=== PATIENT | female | born 1950 | race Caucasian/White ===

== ENCOUNTER 2021-05-27 15:12 | Inpatient (IN) ==
[2021-05-27 16:21] LABS: ABS Lymphocytes 0.5 10^3/ul (1.0-4.8); ABS Monocytes 0.3 10^3/ul (0-0.8); ABS Neutrophils 2.2 10^3/ul (1.5-7.7); Eosinophil % 0.6 %; Hematocrit 41 % (35-47); Hemoglobin 13.9 g/dL (12.0-16.0); Lymphocyte % 15.7 %; Mean Corpuscular HGB Conc 34 g/dL (31-36); Mean Corpuscular Hemoglobin 34 pg (27-31); Mean Corpuscular Volume 101 fL (80-97); Mean Platelet Volume 7.4 fL (7.4-10.4); Platelet Count 316 10^3/uL (150-450); Red Blood Count 4.06 10^6 /uL (3.70-4.87); Red Cell Distribution Width 14 % (10-15)
[2021-05-27 17:17] LABS: Albumin/Globulin Ratio 1.5 (1-3); Calcium 9.1 mg/dL (8.6-10.3); Globulin 2.6 g/dL (2-4); Potassium 4.4 mmol/L (3.5-5.0); Total Bilirubin 0.4 mg/dL (0.2-1.0); Total Protein 6.6 g/dL (6.4-8.9); eGFR CKD-EPI 93.5 (>60)
[2021-05-27] MEDS ORDERED: Iohexol 350 (CONTRAST) 500 ML MDV IV ONE (18:57)
[2021-05-27] MEDS ORDERED: Remdesivir 100 mg Vial 200 MG in NS 0.9% 250 ml 210 ML IV ONE (22:18)
[2021-05-27] MEDS ORDERED: Albuterol HFA INHALER 8 gm MDI INH PRN (22:21)
[2021-05-28] MEDS: Enoxaparin 40 MG/0.4 ML SYR SUBCUT SCH ×2 (01:39→21:12)
[2021-05-28] MEDS: Morphine ORAL.SOLN 10 mg 2 mg/ml UDC 5 ml (10 mg) PO PRN ×2 (03:10→22:44)
[2021-05-28 03:18] LABS: Urine Appearance Clear; Urine Bilirubin Negative (Negative); Urine Blood Negative (Negative); Urine Color Straw; Urine Glucose Negative (Negative); Urine Ketones Trace (Negative); Urine Nitrite Negative (Negative); Urine Protein Negative (Negative); Urine Specific Gravity 1.015 (1.002-1.030); Urine Urobilinogen Negative (Negative)
[2021-05-28 06:37] LABS: ABS Lymphocytes 0.3 10^3/ul (1.0-4.8); ABS Monocytes 0.1 10^3/ul (0-0.8); ABS Neutrophils 2.9 10^3/ul (1.5-7.7); Eosinophil % 0.3 %; Hematocrit 43 % (35-47); Hemoglobin 14.8 g/dL (12.0-16.0); Lymphocyte % 8.1 %; Mean Corpuscular HGB Conc 34 g/dL (31-36); Mean Corpuscular Hemoglobin 35 pg (27-31); Mean Corpuscular Volume 102 fL (80-97); Mean Platelet Volume 7.4 fL (7.4-10.4); Nucleated Red Blood Cells % 0.1; Platelet Count 317 10^3/uL (150-450); Red Blood Count 4.27 10^6 /uL (3.70-4.87); Red Cell Distribution Width 14 % (10-15); White Blood Count 3.4 10^3/uL (3.5-10.8)
[2021-05-28 07:04] LABS: Albumin/Globulin Ratio 1.4 (1-3); Calcium 8.9 mg/dL (8.6-10.3); Globulin 2.8 g/dL (2-4); Potassium 4.7 mmol/L (3.5-5.0); Total Bilirubin 0.4 mg/dL (0.2-1.0); Total Protein 6.8 g/dL (6.4-8.9); eGFR CKD-EPI 97.3 (>60)
[2021-05-28] MEDS: Mometasone/Formoter 200/5 MDI INH SCH ×3 (08:10→20:22)
[2021-05-28] MEDS: oxyCODONE SR 15 mg TAB PO SCH ×2 (09:51→21:11)
[2021-05-28] MEDS: Vitamin THERAPEUTIC TAB PO SCH (09:52)
[2021-05-28] MEDS: NALOXEGOL 12.5 MG PO SCH (09:53)
[2021-05-28] MEDS ORDERED: Albuterol HFA INHALER 8 gm MDI INH PRN (19:59)
[2021-05-28] MEDS: SPIRIVA Respimat (tiotropium) 2.5 mcg/inh Inhaler INH SCH (21:01)
[2021-05-28] MEDS: Remdesivir 100 mg Vial 100 MG in NS 0.9% 250 ml 230 ML IV SCH (21:12)
[2021-05-29] MEDS: SPIRIVA Respimat (tiotropium) 2.5 mcg/inh Inhaler INH SCH (08:15)
[2021-05-29] MEDS: Mometasone/Formoter 200/5 MDI INH SCH ×2 (08:15→20:16)
[2021-05-29] MEDS: oxyCODONE SR 15 mg TAB PO SCH ×2 (09:02→22:27)
[2021-05-29] MEDS: Vitamin THERAPEUTIC TAB PO SCH (09:02)
[2021-05-29] MEDS: NALOXEGOL 12.5 MG PO SCH (10:57)
[2021-05-29] MEDS: Morphine ORAL.SOLN 10 mg 2 mg/ml UDC 5 ml (10 mg) PO PRN (12:42)
[2021-05-29] MEDS ORDERED: Magnesium CITRATE LIQ 300 ML BTL PO ONE (15:05)
[2021-05-29] MEDS ORDERED: Albuterol HFA INHALER 8 gm MDI INH SCH ×2 (18:00→18:30)
[2021-05-29] MEDS ORDERED: Albuterol HFA INHALER 8 gm MDI INH PRN (20:30)
[2021-05-29] MEDS: Enoxaparin 40 MG/0.4 ML SYR SUBCUT SCH (22:28)
[2021-05-29] MEDS: Remdesivir 100 mg Vial 100 MG in NS 0.9% 250 ml 230 ML IV SCH (22:30)
[2021-05-30 05:01] LABS: ABS Lymphocytes 0.7 10^3/ul (1.0-4.8); ABS Monocytes 0.8 10^3/ul (0-0.8); ABS Neutrophils 8.7 10^3/ul (1.5-7.7); Hematocrit 38 % (35-47); Hemoglobin 13.1 g/dL (12.0-16.0); Lymphocyte % 6.4 %; Mean Corpuscular HGB Conc 35 g/dL (31-36); Mean Corpuscular Hemoglobin 35 pg (27-31); Mean Corpuscular Volume 101 fL (80-97); Mean Platelet Volume 7.8 fL (7.4-10.4); Platelet Count 292 10^3/uL (150-450); Red Blood Count 3.77 10^6 /uL (3.70-4.87); Red Cell Distribution Width 14 % (10-15); White Blood Count 10.2 10^3/uL (3.5-10.8)
[2021-05-30 05:41] LABS: Albumin 3.3 g/dL (3.2-5.2); Albumin/Globulin Ratio 1.5 (1-3); Calcium 8.2 mg/dL (8.6-10.3); Globulin 2.2 g/dL (2-4); Potassium 4.2 mmol/L (3.5-5.0); Total Bilirubin 0.3 mg/dL (0.2-1.0); Total Protein 5.5 g/dL (6.4-8.9); eGFR CKD-EPI 96.1 (>60)
[2021-05-30] MEDS: SPIRIVA Respimat (tiotropium) 2.5 mcg/inh Inhaler INH SCH (07:03)
[2021-05-30] MEDS: Mometasone/Formoter 200/5 MDI INH SCH (07:03)
[2021-05-30] MEDS: Vitamin THERAPEUTIC TAB PO SCH (09:23)
[2021-05-30] MEDS: oxyCODONE SR 15 mg TAB PO SCH (09:25)
[2021-05-30 11:56] VITALS: BP 143/74
== END 2021-05-30 14:08 | disposition home or self-care (01) | DRG 871 ==
LOC: ED 15:12 → MED 20:18 → SUATTDRO 20:18 → MED 23:27
PROVIDERS: ADMIT Internal Medicine; ATTEND Internal Medicine

== ENCOUNTER 2022-10-08 20:19 | Inpatient (IN) ==
[2022-10-08] MEDS ORDERED: NS 0.9% 1000 ml BAG 1,000 ML IV ONE (20:21)
[2022-10-08 21:07] LABS: ABS Basophils 0.1 10^3/uL (0.0-0.1); ABS Eosinophils 0.3 10^3/uL (0.0-0.5); ABS Neutrophils 10.5 10^3/uL (1.5-7.6); ABS Nucleated RBC 0.01 10^3/ul; Eosinophil % 2.4 %; Hematocrit 31.3 % (35-45); Hemoglobin 10.8 g/dL (11.5-14.3); Lymphocyte % 7.6 %; Mean Corpuscular Hemoglobin 34.4 pg (27-33); Mean Corpuscular Hgb Conc 34.6 g/dL (31-36); Mean Corpuscular Volume 99.2 fL (80-97); Mean Platelet Volume 7.4 fL (7.5-11.2); Nucleated Red Blood Cells % 0.1 /100 WBC (0.0-0.4); Platelet Count 311 10^3/uL (150-450); Red Blood Count 3.15 10^6/uL (3.63-4.92); Red Cell Distribution Width 13.1 % (12-17); White Blood Count 12.9 10^3/uL (3.8-11.8)
[2022-10-08 21:21] LABS: Activated Partial Thrombo Time 28.2 seconds (26.0-38.0); INR 1.04 (0.88-1.18)
[2022-10-08 21:25] LABS: Albumin 4.1 g/dL (3.2-5.2); Albumin/Globulin Ratio 1.8 (1-3); Calcium 9.2 mg/dL (8.6-10.3); Creatinine, Serum 0.69 mg/dL (0.51-0.95); Globulin 2.3 g/dL (2-4); Potassium 4.8 mmol/L (3.5-5.0); Total Bilirubin 0.3 mg/dL (0.2-1.0); Total Protein 6.4 g/dL (6.4-8.9); eGFR CKD-EPI 91.6 (>60)
[2022-10-08] MEDS ORDERED: Morphine 4 MG/ML VIAL (1 ml) IV ONE (21:34)
[2022-10-08] MEDS ORDERED: Ondansetron 4 mg VIAL 2 MG/ML 2 ml VIAL IV ONE (21:34)
[2022-10-08] MEDS ORDERED: HYDROmorphone 1 MG/1 ML SYRINGE IV SLOW PU ONE (22:40)
[2022-10-09] MEDS: Acetaminophen IV 1 GM/100ML 1,000 MG/100 ML BAG IV PRN ×2 (00:05→08:35)
[2022-10-09] MEDS ORDERED: Albuterol HFA INHALER 8 gm MDI INH PRN (00:24)
[2022-10-09] MEDS ORDERED: Albuterol/Ipratropium NEB.SOL (2.5/0.5 MG) 3 ML NEB.SOLN INH PRN (00:24)
[2022-10-09 00:43] LABS: High Sensitivity Troponin 1 Hr 6 pg/mL (<15)
[2022-10-09] MEDS ORDERED: Ondansetron 4 mg VIAL 2 MG/ML 2 ml VIAL IV PRN ×2 (01:05→12:34)
[2022-10-09] MEDS: Lactated Ringers 1000 ml BAG 1,000 ML IV SCH ×2 (01:59→15:02)
[2022-10-09] MEDS ORDERED: Propofol 10 MG/ML 20 ML BTL ONE (08:06)
[2022-10-09] MEDS ORDERED: Midazolam 2 mg/2 ml VIAL 1 mg/ml 2 ml VIAL (2 mg) ONE (08:06)
[2022-10-09] MEDS ORDERED: fentaNYL 100 mcg/2 ml 50 MCG/ML VIAL ONE ×2 (08:06→13:34)
[2022-10-09] MEDS ORDERED: Lidocaine 2% PF 5 ML VIAL ONE (08:06)
[2022-10-09] MEDS ORDERED: Phenylephrine 40 mcg/mL 10mL (400mcg) SYRINGE ONE (08:06)
[2022-10-09] MEDS ORDERED: Ondansetron 4 mg VIAL 2 MG/ML 2 ml VIAL ONE (08:06)
[2022-10-09] MEDS ORDERED: Dexamethasone IV 4 MG/ML VIAL 1 ml VIAL ONE (08:06)
[2022-10-09 08:33] LABS: Calcium 8.5 mg/dL (8.6-10.3); Creatinine, Serum 0.71 mg/dL (0.51-0.95); eGFR CKD-EPI 89.7 (>60)
[2022-10-09] MEDS ORDERED: Levalbuterol 1.25MG/0.5ML NEB.SOL ONE ×3 (09:02→13:05)
[2022-10-09] MEDS ORDERED: Lidocaine 1% w EPI 1:100,000 MDV 20 ML VIAL ONE (09:21)
[2022-10-09] MEDS ORDERED: ceFAZolin 2 GM in NS PREMIX 2 GM/100 ML BAG IVPB ONE (09:48)
[2022-10-09] MEDS ORDERED: ceFAZolin 2 GM/50 ML BAG IV ONE (10:00)
[2022-10-09] MEDS ORDERED: Naloxone 0.4 mg VIAL 0.4 mg/ml 1 ml VIAL IV PRN (12:34)
[2022-10-09] MEDS ORDERED: fentaNYL 100 mcg/2 ml 50 MCG/ML VIAL IV PRN (12:34)
[2022-10-09] MEDS ORDERED: Levalbuterol 1.25MG/0.5ML NEB.SOL INH PRN (12:34)
[2022-10-09] MEDS: Calcium (OSCAL) 500 mg TAB PO SCH ×2 (16:40→20:20)
[2022-10-09] MEDS: PTO: Multivitamins/Mins AREDS2 (NF) CAP PO SCH ×2 (16:40→20:20)
[2022-10-09] MEDS: Multivitamins/Minerals TAB PO SCH (16:40)
[2022-10-09] MEDS: Sodium Chloride 2% OPTH.SOL 15 ML BTL BOTH EYES SCH ×3 (16:41→21:14)
[2022-10-09] MEDS: Albuterol/Ipratropium RESP(NF) MDI (Combivent Respimat) INH SCH (16:50)
[2022-10-09] MEDS ORDERED: Albuterol/Ipratropium NEB.SOL (2.5/0.5 MG) 3 ML NEB.SOLN INH SCH (19:00)
[2022-10-09] MEDS: ceFAZolin 2 GM PREMIX 2 GM/50 ML BAG IV SCH (20:19)
[2022-10-10] MEDS: Lactated Ringers 1000 ml BAG 1,000 ML IV SCH ×2 (00:23→11:53)
[2022-10-10] MEDS: ceFAZolin 2 GM PREMIX 2 GM/50 ML BAG IV SCH ×2 (04:58→12:16)
[2022-10-10] MEDS ORDERED: Albuterol/Ipratropium NEB.SOL (2.5/0.5 MG) 3 ML NEB.SOLN INH SCH (07:00)
[2022-10-10 08:13] LABS: ABS Lymphocytes 0.6 10^3/uL (1.0-4.8); ABS Neutrophils 10.2 10^3/uL (1.5-7.6); Eosinophil % 0.1 %; Hematocrit 20.2 % (35-45); Lymphocyte % 4.8 %; Mean Corpuscular Hemoglobin 34.7 pg (27-33); Mean Corpuscular Hgb Conc 34.7 g/dL (31-36); Mean Corpuscular Volume 100.1 fL (80-97); Mean Platelet Volume 8.2 fL (7.5-11.2); Platelet Count 222 10^3/uL (150-450); Red Blood Count 2.01 10^6/uL (3.63-4.92); Red Cell Distribution Width 13.5 % (12-17); White Blood Count 11.8 10^3/uL (3.8-11.8)
[2022-10-10 08:27] LABS: Calcium 8.6 mg/dL (8.6-10.3); Creatinine, Serum 0.8 mg/dL (0.51-0.95); eGFR CKD-EPI 77.8 (>60)
[2022-10-10] MEDS: Calcium (OSCAL) 500 mg TAB PO SCH ×2 (08:53→20:03)
[2022-10-10] MEDS: Multivitamins/Minerals TAB PO SCH (08:53)
[2022-10-10] MEDS: Sodium Chloride 2% OPTH.SOL 15 ML BTL BOTH EYES SCH ×4 (08:56→20:07)
[2022-10-10] MEDS: PTO: Multivitamins/Mins AREDS2 (NF) CAP PO SCH ×2 (08:56→20:08)
[2022-10-10] MEDS ORDERED: Enoxaparin 40 MG/0.4 ML SYR SUBCUT SCH (09:00)
[2022-10-10] MEDS: Acetaminophen IV 1 GM/100ML 1,000 MG/100 ML BAG IV PRN (11:53)
[2022-10-10] MEDS: Albuterol/Ipratropium NEB.SOL (2.5/0.5 MG) 3 ML NEB.SOLN INH SCH (19:09)
[2022-10-11] MEDS: Lactated Ringers 1000 ml BAG 1,000 ML IV SCH (00:59)
[2022-10-11] MEDS: Acetaminophen IV 1 GM/100ML 1,000 MG/100 ML BAG IV PRN (05:43)
[2022-10-11 05:56] LABS: ABS Basophils 0.1 10^3/uL (0.0-0.1); ABS Eosinophils 0.1 10^3/uL (0.0-0.5); ABS Lymphocytes 0.8 10^3/uL (1.0-4.8); ABS Monocytes 0.9 10^3/uL (0.0-0.9); Eosinophil % 0.9 %; Hematocrit 24.5 % (35-45); Hemoglobin 8.6 g/dL (11.5-14.3); Lymphocyte % 7.3 %; Mean Corpuscular Hemoglobin 34.1 pg (27-33); Mean Corpuscular Hgb Conc 35.1 g/dL (31-36); Mean Corpuscular Volume 97.1 fL (80-97); Mean Platelet Volume 7.5 fL (7.5-11.2); Platelet Count 206 10^3/uL (150-450); Red Blood Count 2.52 10^6/uL (3.63-4.92); Red Cell Distribution Width 14.7 % (12-17); White Blood Count 10.9 10^3/uL (3.8-11.8)
[2022-10-11 06:10] LABS: Creatinine, Serum 0.49 mg/dL (0.51-0.95); Potassium 4.4 mmol/L (3.5-5.0); eGFR CKD-EPI 99.5 (>60)
[2022-10-11] MEDS: Albuterol/Ipratropium NEB.SOL (2.5/0.5 MG) 3 ML NEB.SOLN INH SCH ×2 (07:22→19:17)
[2022-10-11] MEDS: Sodium Chloride 2% OPTH.SOL 15 ML BTL BOTH EYES SCH ×4 (09:25→20:35)
[2022-10-11] MEDS: Multivitamins/Minerals TAB PO SCH (09:25)
[2022-10-11] MEDS: PTO: Multivitamins/Mins AREDS2 (NF) CAP PO SCH ×2 (09:25→20:43)
[2022-10-11] MEDS: Calcium (OSCAL) 500 mg TAB PO SCH ×2 (09:25→20:35)
[2022-10-11] MEDS: Albuterol HFA INHALER 8 gm MDI INH PRN ×2 (11:17→14:40)
[2022-10-11] MEDS: Senna TAB 8.6 mg TAB PO PRN (20:56)
[2022-10-12 07:00] LABS: ABS Eosinophils 0.3 10^3/uL (0.0-0.5); ABS Lymphocytes 0.8 10^3/uL (1.0-4.8); ABS Monocytes 0.8 10^3/uL (0.0-0.9); ABS Nucleated RBC 0.01 10^3/ul; Eosinophil % 3.3 %; Hemoglobin 7.6 g/dL (11.5-14.3); Mean Corpuscular Hemoglobin 33.7 pg (27-33); Mean Corpuscular Hgb Conc 34.7 g/dL (31-36); Mean Corpuscular Volume 97.2 fL (80-97); Mean Platelet Volume 8.3 fL (7.5-11.2); Nucleated Red Blood Cells % 0.1 /100 WBC (0.0-0.4); Platelet Count 207 10^3/uL (150-450); Red Blood Count 2.26 10^6/uL (3.63-4.92); Red Cell Distribution Width 14.4 % (12-17); White Blood Count 7.9 10^3/uL (3.8-11.8)
[2022-10-12] MEDS: Magnesium Hydroxide LIQ 30 ML UDC PO PRN ×2 (07:32→22:06)
[2022-10-12] MEDS: Calcium (OSCAL) 500 mg TAB PO SCH ×2 (07:32→22:05)
[2022-10-12] MEDS: Polyethylene Glycol 3350 17 GM PACKET PO PRN (07:32)
[2022-10-12] MEDS: Multivitamins/Minerals TAB PO SCH (07:32)
[2022-10-12] MEDS: Sodium Chloride 2% OPTH.SOL 15 ML BTL BOTH EYES SCH ×4 (07:33→22:05)
[2022-10-12] MEDS: PTO: Multivitamins/Mins AREDS2 (NF) CAP PO SCH ×2 (07:33→22:05)
[2022-10-12] MEDS: Albuterol/Ipratropium NEB.SOL (2.5/0.5 MG) 3 ML NEB.SOLN INH SCH ×2 (08:06→20:09)
[2022-10-12] MEDS: Lactated Ringers 1000 ml BAG 1,000 ML IV SCH (10:26)
[2022-10-12] MEDS: Albuterol HFA INHALER 8 gm MDI INH PRN (12:45)
[2022-10-12 14:17] LABS: Hematocrit 22.5 % (35-45); Hemoglobin 7.9 g/dL (11.5-14.3)
[2022-10-12] MEDS: Senna TAB 8.6 mg TAB PO PRN (22:06)
[2022-10-13] MEDS: Polyethylene Glycol 3350 17 GM PACKET PO PRN ×2 (06:14→22:06)
[2022-10-13] MEDS: Albuterol/Ipratropium NEB.SOL (2.5/0.5 MG) 3 ML NEB.SOLN INH SCH ×2 (08:31→19:45)
[2022-10-13] MEDS: Multivitamins/Minerals TAB PO SCH (09:03)
[2022-10-13] MEDS: PTO: Multivitamins/Mins AREDS2 (NF) CAP PO SCH ×2 (09:03→21:44)
[2022-10-13] MEDS: Magnesium Hydroxide LIQ 30 ML UDC PO PRN ×2 (09:03→22:07)
[2022-10-13] MEDS: Calcium (OSCAL) 500 mg TAB PO SCH ×2 (09:03→21:43)
[2022-10-13] MEDS: Sodium Chloride 2% OPTH.SOL 15 ML BTL BOTH EYES SCH ×4 (09:09→21:44)
[2022-10-13] MEDS: Heparin 5000 UNITS/ML 1 mL VIAL SUBCUT SCH (21:45)
[2022-10-13] MEDS: Senna TAB 8.6 mg TAB PO PRN (22:07)
[2022-10-14] MEDS: Albuterol/Ipratropium NEB.SOL (2.5/0.5 MG) 3 ML NEB.SOLN INH SCH ×2 (08:00→19:50)
[2022-10-14 08:50] LABS: Hematocrit 23.2 % (35-45); Hemoglobin 8.2 g/dL (11.5-14.3)
[2022-10-14] MEDS: Heparin 5000 UNITS/ML 1 mL VIAL SUBCUT SCH ×2 (09:02→20:21)
[2022-10-14] MEDS: Magnesium Hydroxide LIQ 30 ML UDC PO PRN (09:02)
[2022-10-14] MEDS: Calcium (OSCAL) 500 mg TAB PO SCH ×2 (09:03→20:20)
[2022-10-14] MEDS: Multivitamins/Minerals TAB PO SCH (09:05)
[2022-10-14] MEDS: PTO: Multivitamins/Mins AREDS2 (NF) CAP PO SCH ×2 (09:06→20:24)
[2022-10-14] MEDS: Sodium Chloride 2% OPTH.SOL 15 ML BTL BOTH EYES SCH ×4 (09:06→20:25)
[2022-10-14 09:10] LABS: Calcium 8.9 mg/dL (8.6-10.3); Creatinine, Serum 0.51 mg/dL (0.51-0.95); Potassium 4.3 mmol/L (3.5-5.0); eGFR CKD-EPI 98.5 (>60)
[2022-10-15] MEDS: Albuterol/Ipratropium NEB.SOL (2.5/0.5 MG) 3 ML NEB.SOLN INH SCH (07:03)
[2022-10-15] MEDS: PTO: Multivitamins/Mins AREDS2 (NF) CAP PO SCH (07:50)
[2022-10-15] MEDS: Heparin 5000 UNITS/ML 1 mL VIAL SUBCUT SCH (07:50)
[2022-10-15] MEDS: Calcium (OSCAL) 500 mg TAB PO SCH (07:50)
[2022-10-15] MEDS: Sodium Chloride 2% OPTH.SOL 15 ML BTL BOTH EYES SCH (07:50)
[2022-10-15] MEDS: Multivitamins/Minerals TAB PO SCH (07:50)
[2022-10-15 08:52] LABS: Rapid COVID-19 Molecular Undetected (Undetected)
[2022-10-15 09:59] VITALS: BP 154/74
== END 2022-10-15 10:30 | DRG 481 ==
LOC: ED 20:19 → SUATTDRO 22:52 → EDHOLD 22:52 → OR 10-09 09:51 → SSU 10-09 09:53 → SUATTDRO 10-09 14:41
PROVIDERS: ADMIT Internal Medicine; ATTEND Internal Medicine

== ENCOUNTER 2023-06-02 07:59 | Inpatient (IN) ==
[2023-06-02] MEDS: Albuterol/Ipratropium NEB.SOL (2.5/0.5 MG) 3 ML NEB.SOLN INH ONE (08:30)
[2023-06-02 08:40] LABS: ABS Basophils 0.1 10^3/uL (0.0-0.1); ABS Eosinophils 0.1 10^3/uL (0.0-0.5); ABS Lymphocytes 0.7 10^3/uL (1.0-4.8); ABS Monocytes 0.8 10^3/uL (0.0-0.9); ABS Neutrophils 8.1 10^3/uL (1.5-7.6); ABS Nucleated RBC 0.02 10^3/ul; Eosinophil % 1.1 %; Hematocrit 36.6 % (35-45); Hemoglobin 12.5 g/dL (11.5-14.3); Lymphocyte % 7.5 %; Mean Corpuscular Hemoglobin 34.9 pg (27-33); Mean Corpuscular Hgb Conc 34.1 g/dL (31-36); Mean Corpuscular Volume 102.3 fL (80-97); Mean Platelet Volume 9.4 fL (7.5-11.2); Nucleated Red Blood Cells % 0.2 %/100WBC (0.0-0.8); Platelet Count 239 10^3/uL (150-450); Red Blood Count 3.57 10^6/uL (3.63-4.92); Red Cell Distribution Width 14.9 % (12-17); White Blood Count 9.7 10^3/uL (3.8-11.8)
[2023-06-02 08:45] LABS: Activated Partial Thrombo Time 26.4 seconds (26.0-38.0); INR 1.06 (0.83-1.13)
[2023-06-02 09:17] LABS: Albumin 3.9 g/dL (3.2-5.2); Albumin/Globulin Ratio 1.7 (1-3); C Reactive Protein 16.37 mg/L (<8.01); Calcium 9.4 mg/dL (8.6-10.3); Creatinine, Serum 0.72 mg/dL (0.51-0.95); Globulin 2.3 g/dL (2-4); Potassium 3.7 mmol/L (3.5-5.0); Total Protein 6.2 g/dL (6.4-8.9); eGFR CKD-EPI 87.7 (>60)
[2023-06-02] MEDS: Piperacillin/Tazobac 3.375 BAG 3.375 GM/100 ML BAG IV ONE (09:28)
[2023-06-02] MEDS: Dexamethasone IV 4 MG/ML VIAL 1 ml VIAL IV SLOW PU ONE (09:28)
[2023-06-02] MEDS: Azithromycin 500 mg/250 ml NS 500 MG/250 ML BAG IVPB ONE (09:58)
[2023-06-02 10:16] LABS: High Sensitivity Troponin 1 Hr 16 pg/mL (<15)
[2023-06-02] MEDS ORDERED: Ondansetron 4 mg VIAL 2 MG/ML 2 ml VIAL IV PRN (11:04)
[2023-06-02] MEDS: Iohexol 300 (CONTRAST) 10 ML SDV IV ONE (11:22)
[2023-06-02] MEDS ORDERED: Enoxaparin 30 MG/0.3 ML SYR SUBCUT SCH (12:00)
[2023-06-02] MEDS ORDERED: Zosyn per Pharmacy NOTE FOLLOW UP SCH (12:00)
[2023-06-02] MEDS ORDERED: ZOSYN 3.375 GM Q8H per EXTENDED INFUSION IV SCH (14:00)
[2023-06-02] MEDS: ZOSYN 3.375 GM Q8H per EXTENDED INFUSION IV SCH (15:49)
[2023-06-02] MEDS: Sodium Chloride 5% OPTH.SOL 15 ML BTL BOTH EYES SCH (15:50)
[2023-06-02] MEDS: Sodium Chloride 5% OPTH OINT 3.5 gm TUBE BOTH EYES SCH (16:25)
[2023-06-02] MEDS: Albuterol/Ipratropium NEB.SOL (2.5/0.5 MG) 3 ML NEB.SOLN INH PRN (16:40)
[2023-06-02] MEDS: methylPREDNISolone SOD SUCC 40 mg/ml 1 ml VIAL IV SCH (17:22)
[2023-06-02] MEDS: Albuterol/Ipratropium NEB.SOL (2.5/0.5 MG) 3 ML NEB.SOLN INH SCH (19:39)
[2023-06-02] MEDS: guaiFENesin 100 mg/5 ml LIQ unit dose cup PO PRN (20:44)
[2023-06-02] MEDS: Benzocaine/Menthol LOZ PO PRN (20:44)
[2023-06-03 05:18] LABS: ABS Basophils 0.1 10^3/uL (0.0-0.1); ABS Lymphocytes 0.2 10^3/uL (1.0-4.8); ABS Monocytes 0.7 10^3/uL (0.0-0.9); ABS Neutrophils 12.5 10^3/uL (1.5-7.6); ABS Nucleated RBC 0.01 10^3/ul; Hematocrit 32.9 % (35-45); Hemoglobin 11.3 g/dL (11.5-14.3); Lymphocyte % 1.8 %; Mean Corpuscular Hemoglobin 35.1 pg (27-33); Mean Corpuscular Hgb Conc 34.4 g/dL (31-36); Mean Corpuscular Volume 101.9 fL (80-97); Nucleated Red Blood Cells % 0.1 %/100WBC (0.0-0.8); Platelet Count 206 10^3/uL (150-450); Red Blood Count 3.22 10^6/uL (3.63-4.92); Red Cell Distribution Width 14.6 % (12-17); White Blood Count 13.6 10^3/uL (3.8-11.8)
[2023-06-03 05:34] LABS: Albumin 3.5 g/dL (3.2-5.2); Albumin/Globulin Ratio 1.6 (1-3); Calcium 8.6 mg/dL (8.6-10.3); Creatinine, Serum 0.78 mg/dL (0.51-0.95); Globulin 2.2 g/dL (2-4); Total Bilirubin 0.8 mg/dL (0.2-1.0); Total Protein 5.7 g/dL (6.4-8.9); eGFR CKD-EPI 79.7 (>60)
[2023-06-03] MEDS: CMCS: Raloxifene 60 mg TAB (NF) PO SCH (10:40)
[2023-06-03] MEDS: Lactated Ringers 1000 ml BAG 1,000 ML IV SCH (10:46)
[2023-06-03] MEDS: fentaNYL 100 mcg/2 ml 50 MCG/ML VIAL ONE (13:55)
[2023-06-03] MEDS: Albuterol/Ipratropium NEB.SOL (2.5/0.5 MG) 3 ML NEB.SOLN INH SCH (17:40)
[2023-06-03] MEDS: Enoxaparin 30 MG/0.3 ML SYR SUBCUT SCH (21:54)
[2023-06-04] MEDS: Lactated Ringers 1000 ml BAG 1,000 ML IV ONE (11:05)
[2023-06-04] MEDS: Magnesium Hydroxide LIQ 30 ML UDC PO ONE (12:01)
[2023-06-04] MEDS: Morphine ORAL CONCENTRATE 5 MG/0.25 ML ORAL.SYRIN PO PRN (12:01)
[2023-06-04] MEDS: Morphine ORAL CONCENTRATE 5 MG/0.25 ML ORAL.SYRIN PO ONE (16:53)
[2023-06-04] MEDS: methylPREDNISolone SOD SUCC 40 mg/ml 1 ml VIAL IV SCH (16:53)
[2023-06-05] MEDS: Lactated Ringers 1000 ml BAG 1,000 ML IV ONE (11:06)
[2023-06-05] MEDS: Morphine ORAL CONCENTRATE 5 MG/0.25 ML ORAL.SYRIN PO PRN (13:44)
[2023-06-05] MEDS: Polyethylene Glycol 3350 17 GM PACKET PO PRN (22:43)
[2023-06-06 10:08] VITALS: BP 135/75
[2023-06-06] MEDS: Senna TAB 8.6 mg TAB PO PRN (13:01)
== END 2023-06-06 15:15 | disposition home or self-care (01) | DRG 871 ==
LOC: EDHOLD 07:59 → ED 07:59 → SUATTDRO 11:04 → MED 12:09 → SUATTDRO 06-03 15:04
PROVIDERS: ADMIT Student in an Organized Health Care Education/Training Program; ATTEND Internal Medicine

== ENCOUNTER 2023-06-13 11:17 | Inpatient (IN) ==
[2023-06-13 13:27] LABS: ABS Basophils 0.1 10^3/uL (0.0-0.1); ABS Lymphocytes 0.5 10^3/uL (1.0-4.8); ABS Monocytes 0.9 10^3/uL (0.0-0.9); ABS Neutrophils 12.3 10^3/uL (1.5-7.6); ABS Nucleated RBC 0.01 10^3/ul; Eosinophil % 0.2 %; Hematocrit 35.7 % (35-45); Hemoglobin 12.1 g/dL (11.5-14.3); Lymphocyte % 3.4 %; Mean Corpuscular Hgb Conc 33.8 g/dL (31-36); Mean Corpuscular Volume 103.6 fL (80-97); Mean Platelet Volume 9.2 fL (7.5-11.2); Nucleated Red Blood Cells % 0.1 %/100WBC (0.0-0.8); Platelet Count 265 10^3/uL (150-450); Red Blood Count 3.45 10^6/uL (3.63-4.92); Red Cell Distribution Width 16.6 % (12-17); White Blood Count 13.8 10^3/uL (3.8-11.8)
[2023-06-13 13:47] LABS: Albumin 3.5 g/dL (3.2-5.2); Albumin/Globulin Ratio 1.5 (1-3); Calcium 9.8 mg/dL (8.6-10.3); Creatinine, Serum 0.88 mg/dL (0.51-0.95); Globulin 2.3 g/dL (2-4); Potassium 3.9 mmol/L (3.5-5.0); Total Bilirubin 2.1 mg/dL (0.2-1.0); Total Protein 5.8 g/dL (6.4-8.9); eGFR CKD-EPI 68.9 (>60)
[2023-06-13] MEDS: Albuterol HFA INHALER 8 gm MDI INH ONE (15:07)
[2023-06-13] MEDS ORDERED: Al Hydrox/Mg Hydrox/Simet LIQ 30 ML UDC PO PRN (17:16)
[2023-06-13] MEDS ORDERED: Albuterol/Ipratropium NEB.SOL (2.5/0.5 MG) 3 ML NEB.SOLN INH PRN (17:19)
[2023-06-13] MEDS: Albuterol/Ipratropium NEB.SOL (2.5/0.5 MG) 3 ML NEB.SOLN INH SCH (20:02)
[2023-06-13] MEDS: Enoxaparin 40 MG/0.4 ML SYR SUBCUT SCH (20:50)
[2023-06-13] MEDS: Sodium Chloride 5% OPTH.SOL 15 ML BTL BOTH EYES SCH (20:56)
[2023-06-13] MEDS: Iohexol 350 (CONTRAST) 500 ML MDV IV ONE ×2 (20:57→21:08)
[2023-06-14 00:06] LABS: ABS Basophils 0.1 10^3/uL (0.0-0.1); ABS Lymphocytes 0.2 10^3/uL (1.0-4.8); ABS Monocytes 0.3 10^3/uL (0.0-0.9); ABS Neutrophils 12.1 10^3/uL (1.5-7.6); ABS Nucleated RBC 0.01 10^3/ul; Hematocrit 31.2 % (35-45); Hemoglobin 10.7 g/dL (11.5-14.3); Lymphocyte % 1.8 %; Mean Corpuscular Hemoglobin 35.6 pg (27-33); Mean Corpuscular Hgb Conc 34.5 g/dL (31-36); Mean Corpuscular Volume 103.1 fL (80-97); Mean Platelet Volume 8.7 fL (7.5-11.2); Nucleated Red Blood Cells % 0.1 %/100WBC (0.0-0.8); Platelet Count 235 10^3/uL (150-450); Red Blood Count 3.02 10^6/uL (3.63-4.92); Red Cell Distribution Width 16.7 % (12-17); White Blood Count 12.8 10^3/uL (3.8-11.8)
[2023-06-14 00:34] LABS: Creatinine, Serum 0.96 mg/dL (0.51-0.95); eGFR CKD-EPI 62.1 (>60)
[2023-06-14] MEDS: Heparin 5000 UNITS/ML 1 mL VIAL IV SCH (00:37)
[2023-06-14] MEDS: Heparin DRIP 25,000 UNITS BAG 25,000 UNITS/250 ML BAG IV SCH (00:40)
[2023-06-14] MEDS: Enoxaparin 40 MG/0.4 ML SYR SUBCUT SCH (08:41)
[2023-06-14] MEDS: PALONOSETRON HCL 0.05 MG/ML (0.25 MG) SYRINGE (0.05 MG/ML) IV ONE (15:49)
[2023-06-14] MEDS: APREPITANT 130 MG/18 ML VIAL IVPB ONE (15:49)
[2023-06-14] MEDS: ETOPOSIDE IVPB SCH (15:57)
[2023-06-14] MEDS: NS 0.9% IVPB SCH (15:57)
[2023-06-14] MEDS: NS 0.9% IVPB ONE (16:33)
[2023-06-14] MEDS: CARBOPLATIN IVPB ONE (16:33)
[2023-06-14] MEDS: Gadoteridol (CONTRAST) 279.3 MG/ML 10 ML IV ONE (19:26)
[2023-06-15 06:05] LABS: ABS Eosinophils 0.1 10^3/uL (0.0-0.5); ABS Lymphocytes 0.4 10^3/uL (1.0-4.8); ABS Neutrophils 14.9 10^3/uL (1.5-7.6); ABS Nucleated RBC 0.01 10^3/ul; Eosinophil % 0.4 %; Hematocrit 28.8 % (35-45); Hemoglobin 9.7 g/dL (11.5-14.3); Lymphocyte % 2.4 %; Mean Corpuscular Hemoglobin 35.4 pg (27-33); Mean Corpuscular Hgb Conc 33.8 g/dL (31-36); Mean Corpuscular Volume 104.7 fL (80-97); Mean Platelet Volume 9.2 fL (7.5-11.2); Nucleated Red Blood Cells % 0.1 %/100WBC (0.0-0.8); Platelet Count 201 10^3/uL (150-450); Red Blood Count 2.75 10^6/uL (3.63-4.92); White Blood Count 16.4 10^3/uL (3.8-11.8)
[2023-06-15 06:24] LABS: Calcium 8.4 mg/dL (8.6-10.3); Creatinine, Serum 0.97 mg/dL (0.51-0.95); Potassium 4.4 mmol/L (3.5-5.0); eGFR CKD-EPI 61.3 (>60)
[2023-06-15] MEDS: Polyethylene Glycol 3350 17 GM PACKET PO PRN (11:05)
[2023-06-15] MEDS ORDERED: Albuterol HFA INHALER 8 gm MDI INH PRN (16:13)
[2023-06-16] MEDS ORDERED: Magnesium Hydroxide LIQ 30 ML UDC PO PRN (11:01)
[2023-06-16] MEDS ORDERED: Polyethylene Glycol 3350 17 GM PACKET PO PRN (11:01)
[2023-06-16] MEDS ORDERED: Senna TAB 8.6 mg TAB PO PRN (11:01)
[2023-06-16] MEDS: Magnesium Hydroxide LIQ 30 ML UDC PO SCH (13:28)
[2023-06-17 06:11] LABS: ABS Basophils 0.1 10^3/uL (0.0-0.1); ABS Eosinophils 0.1 10^3/uL (0.0-0.5); ABS Lymphocytes 0.5 10^3/uL (1.0-4.8); ABS Monocytes 0.3 10^3/uL (0.0-0.9); ABS Neutrophils 11.9 10^3/uL (1.5-7.6); ABS Nucleated RBC 0.01 10^3/ul; Eosinophil % 0.5 %; Hematocrit 27.8 % (35-45); Hemoglobin 9.6 g/dL (11.5-14.3); Lymphocyte % 3.8 %; Mean Corpuscular Hemoglobin 35.8 pg (27-33); Mean Corpuscular Hgb Conc 34.3 g/dL (31-36); Mean Corpuscular Volume 104.3 fL (80-97); Nucleated Red Blood Cells % 0.1 %/100WBC (0.0-0.8); Platelet Count 160 10^3/uL (150-450); Red Blood Count 2.67 10^6/uL (3.63-4.92); White Blood Count 12.8 10^3/uL (3.8-11.8)
[2023-06-17 06:24] LABS: Albumin 2.9 g/dL (3.2-5.2); Albumin/Globulin Ratio 1.5 (1-3); Calcium 8.7 mg/dL (8.6-10.3); Creatinine, Serum 0.62 mg/dL (0.51-0.95); Potassium 5.6 mmol/L (3.5-5.0); Total Bilirubin 1.6 mg/dL (0.2-1.0); Total Protein 4.9 g/dL (6.4-8.9); eGFR CKD-EPI 93.4 (>60)
[2023-06-17 17:09] LABS: Creatinine, Serum 0.63 mg/dL (0.51-0.95); Potassium 5.8 mmol/L (3.5-5.0)
[2023-06-17] MEDS: SODIUM ZIRCONIUM CYCLOSILICATE 10 GM PACKET PO SCH (18:37)
[2023-06-18 07:20] LABS: Calcium 8.7 mg/dL (8.6-10.3); Creatinine, Serum 0.61 mg/dL (0.51-0.95); Potassium 5.4 mmol/L (3.5-5.0); eGFR CKD-EPI 93.8 (>60)
[2023-06-18 11:30] VITALS: BP 110/66
== END 2023-06-18 13:30 | disposition home or self-care (01) | DRG 846 ==
LOC: ED 11:17 → EDHOLD 11:17 → MEDTELE 17:47 → SUATTDRO 06-14 15:17
PROVIDERS: ADMIT Internal Medicine; ATTEND Family Medicine